=== PATIENT | male | born 1980 | race Caucasian/White ===

== ENCOUNTER 2023-02-06 10:05 | Day surgery (SDC) | payer MEDICAID, SELFPAY ==
--- NOTE | 2023-01-29 11:26 | EKG12_ITS ---
Test Reason : PRE OP Blood Pressure : / mmHG Vent. Rate : 068 BPM Atrial Rate : 068 BPM P-R Int : 122 ms QRS Dur : 088 ms QT Int : 396 ms P-R-T Axes : 060 062 007 degrees QTc Int : 421 ms Normal sinus rhythm Nonspecific T wave abnormality Abnormal ECG Confirmed by NATHALY BAKER ([id number]), tape editor WAYNE AGUDELO ([id number]) on 01/30/2023 11:37:03 AM Referred By: Bowen Larsen Confirmed By:NATHALY BAKER
[2023-01-29 12:32] LABS: Hematocrit 45.8 % (40-54); Hemoglobin 15.6 g/dL (13.0-16.5); Mean Corp Hgb Conc 34.1 g/dL (32-36); Mean Corpuscular Hgb 33.1 pg (27.0-32.0); Mean Platelet Vol. 11.2 fl (6.2-12.0); Platelet Count 281 K/mm3 (150-450); RBC Distribution Width SD 50.4 fl (35.1-43.9); Red Blood Count 4.72 M/mm3 (4.6-6.2); White Blood Count 9.1 K/mm3 (4.4-11.0)
[2023-01-29 13:04] LABS: ALB/GLOB Ratio 0.9 RATIO (0.9-2.4); AST(SGOT) 16 U/L (15-37); Alanine Aminotransfer ALT/SGPT 25 U/L (16-61); Albumin, Serum 3.3 g/dL (3.2-5.0); Alkaline Phosphatase 72 U/L (45-117); Anion Gap 5 (5-15); BUN 12 mg/dL (7-18); BUN/Creat Ratio 11.8 RATIO (10-20); Calcium,Total 9.1 mg/dL (8.5-10.1); Chloride 106 mmol/L (98-107); Creatinine, Serum 1.02 mg/dL (0.70-1.30); EST Glomerular Filtration Rate 85 mL/min (>60); Est Glom Filt Rate - Afr Amer 103 mL/min (>60); Globulin 3.5 g/dL (2.2-4.2); Glucose 83 mg/dL (74-106); Potassium 4.1 mmol/L (3.5-5.1); Protein, Total 6.8 g/dL (6.4-8.2); Sodium Level 137 mmol/L (136-145)
[2023-02-06 10:38] VITALS: BP 134/87; PULSE 68; RESP 16; TEMP 37; O2SAT 100; BMI 26.6
[2023-02-06] MEDS: Lactated Ringers 1,000 ML 15 ML IV (10:41)
--- NOTE | 2023-02-06 10:44 | PCM.HP.BLA ---
History and Physical Date of Admission: 02/06/23 Visit Reasons: PILONIDAL CYST- WANTS EXCISION Chief Complaint: pilonidal cyst-wants excision Is patient in pain?: No Allergies No Known Allergies Allergy (Unverified 01/14/23 13:54) Medications NK 01/14/23 [History Confirmed 01/14/23] PFSH Surgical History (Updated 01/14/23 @ 13:52 by Brenda Saldana) H/O removal of cyst Family History (Updated 01/14/23 @ 13:53 by Brenda Saldana) Grandfather Cancer lungGrandmother CVA (cerebral vascular accident)Uncle Cancer HPI HPI HPI: 42-year-old gentleman is referred by EARL Massey for surgical consultation regarding a pilonidal cyst. A written copy my surgical consult recommendations will return to her. 42-year-old gentleman. He states that he has had an area that intermittently drains around his sacrococcygeal area and has done so for years. 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 Etiology to that is not clear. He has been a long-term cigarette smoker and he continues to smoke. He has been diagnosed as having a pilonidal cyst and he is referred for consideration of removal. ROS General General: No weight change, appetite, fatigue, colon cancer, breast cancer or weakness HEENT HEENT: No difficulty swallowing, eye injury, eye surgery, swollen glands or hoarseness Endo Endocrine: No thyroid disease, diabetes mellitus, thyroid cancer, Hair loss, heat intolerance or cold intolerance Skin Skin: No rash or changing moles Musc Musculoskeletal: Yes back problems; No arthritis, rheumatoid arthritis, gout or joint pain Cardio Cardiovascular: No murmur, pacemaker, heart disease, atrial fibrillation, high blood pressure, heart attack, heart stent, palpitations, shortness of breat with exertion or chest pain Psych Psychiatric: No depression, anxiety or hearing voices Resp Respiratory: No shortness of breath, No sleep apnea, No cough, No COPD, No asthma, No emphysema and No wheezing Gastro Gastrointestinal: No abdominal pain, No nausea or vomiting, No diarrhea, No constipation, No blood in stool, No acid reflux, No hemorrhoids, No ulcers, No gallbladder problem and No black,tarry stools [place] Hematologic: No blood thinners, No blood disorders, No bleeding, No anemia and No blood clots Neuro Neurologic: No system reviewed and no additional complaints, except as documented, No as per HPI, No abnormal gait, No abnormal hearing, No abnormal movements, No abnormal speech, No behavioral changes, No burning sensations, No confusion, No convulsions, No disequilibrium, No dizziness, No localized weakness, No frequent falls, No headache(s), No lack of coordination, No loss of vision, No memory loss, Yes numbness, No other visual disturbances, No radicular pain, No restless legs, No sensory deficit, No syncope, Yes tingling, No tremor(s), No weakness and No other Exam Const General: cooperative and comfortable Nutritional Appearance: average body habitus Orientation: alert and awake Other: Intermittent jitteriness tremors noted HENMT Head: normal to inspection Other: Poor dentition Eyes General: appearance normal, both eyes and all related structures Neck Neck: normal visual inspection Chest Other: Increased AP diameter. Clear to auscultation Resp Auscultation: clear to auscultation bilaterally Cardio Rate: regular rate Rhythm: regular rhythm GI Palpation: soft and no hepatosplenomegaly Skin Other: Left parasacral area punctate area of previous drainage. Induration that extends to the midline. Deep espinoza cleft. No obvious pits or pores Neuro General: patient alert Extrem General: no calf tenderness Psych Appearance: grossly normal Assessment and Plan Assessment and Plan (1) Pilonidal cyst: Status: Acute Plan: Patient appears to have intermittently draining symptomatic pilonidal cyst. I have recommended to him a cleft lift procedure. In great detail we discussed technique benefits risk complications alternatives. No guarantees of success have been offered. I have vigorously encouraged the patient to cease his tobacco use and explained to him the complications that can occur with wound healing etc. with his continuing. I have instructed him on depilatory hair removal and have provided him the name of a product to assist and to initiate. Patient is aware that postoperative drainage will be placed and that he will not be showering or bathing for approximately 5 postoperative days while the drains are in place. 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 He has had an opportunity to ask and have questions answered. We will schedule procedure at his discretion. Bowen Larsen M.D., F.A.C.S I have examined the patient and the H&P has been reviewed. There are no clinical changes since date of exam. Bowen Larsen M.D., F.A.C.S.
--- NOTE | 2023-02-06 10:45 | EX.PCM.DISCH ---
Discharge Instructions Diet Discharge Diet: Light diet - advance as tolerated Activity Discharge Activity: May Not Drive and May Not Shower Weight Bearing Status: Weight bearing as tolerated Lifting Restrictions: 10 pounds Dressing / Incision Additional Dressing/Incision Instructions:: You may cleanse the incision area and drain site with a Q-tip and peroxide. Reapply dry gauze then daily. If the drain is in place then empty and measure and record the amount of drain output. Please have assistance in either clip bring the hair around the pilonidal site or using a hair removal product. Recurrent hair growth at the site is to be strictly inhibited Follow Up Care Please Follow Up With: Bowen Larsen MD When: Call for appointment to be seen on February 10, 2023 Test Results: Test results from this visit will be discussed in further detail at your follow-up appointment, if applicable. Discharge Plan Admission Primary Reason for Your Visit: Pilonidal cyst sinuses and abscess Attending Provider: Bowen Larsen Primary Care Provider: Mary Ann Barnes NP Discharge Orders/Prescriptions Prescriptions: New hydrocodone-acetaminophen 5-325 mg tablet 1 tab PO Q6H PRN (Reason: pain) 3 Days Qty: 10 0RF hydrocodone-acetaminophen 5-325 mg Tablet 1 - 2 tab PO Q4H PRN PRN (Reason: Pain Score 1-10) 3 Days Qty: 10 0RF Continued hydrocodone-acetaminophen 5-325 mg tablet 1 tab PO Q6H PRN (Reason: pain) MARIJUANA Patient Comments: PT STATES MEDICAL MARIJUANA; SMOKES IT COUPLE TIMES PER DAY Referrals / Follow Up: Mary Ann Barnes NP, [employer] [Primary Care Provider] - Disposition Disposition (needs filled in before D/C Order can be placed): Home, Self Care
[2023-02-06] MEDS: Cefazolin 2 GM in 0.9% Normal Saline 100 ML IV (12:57)
--- NOTE | 2023-02-06 13:00 | PILCYST_PTH ---
PATIENT: NAV COUGHLIN LOC: [facility] [place] U#:[id number] AGE/SX: 42/M ROOM: RE02/06/[address]: Dr. Bowen Larsen MD : [id number] BED: DIS: 02/06/2023 SPEC #: [id number] RECD: 02/06/23 14:29 STATUS: TINY STEPHANIE #: [id number] SILVERIO: 02/06/23 13:[address]: Bowen Larsen DEPT: SURGICAL PATHOLOGY RECD BY: Brit Marina ENTERED: 02/07/23 08:07 SP TYPE: Pilonidal OTHR DR: EARL Estrada Tissues: PILONIDAL TISSUE Procedures: Surgery Specimen Level III HEADER OPERATION: Excision, pilonidal cyst and cleft lift procedure PRE-OP DIAGNOSIS: Pilonidal cyst TISSUE SUBMITTED: Pilonidal cyst MICROSCOPIC DIAGNOSIS Pilonidal cyst, excision: Consistent with pilonidal cyst. SJ:richard 02/10/2023 MICROSCOPIC DESCRIPTION Slides are reviewed. GROSS DESCRIPTION Received in fixative is one container labeled with the patient's name and designated pilonidal cyst. The specimen consists of a piece of skin with underlying tissue measuring 9.5 x 2.0 cm and up to 2.0 cm in thickness. Sections reveal a focal area of congestion with blue dye discoloration. Chocolatier sections are submitted in three cassettes. / DEEDEE:richard 02/07/2023 TC:5 [facility]: [id number]
[2023-02-06] MEDS: Bupivacaine Mpf 0.5% 30 ML VIAL (14:06)
--- NOTE | 2023-02-06 14:12 | PCM.OPRPT ---
Report of Operation Date of Procedure: 02/06/23 Pre-Operative Diagnosis: Pilonidal cyst and sinuses Post-Operative Diagnosis: Same Surgery/Procedure Performed:: Complex pilonidal cystectomy with cleft lift procedure Description of Surgical Findings:: Timeout and informed consent was obtained. 42-year-old gentleman was taken to the operating room placed initially supine on the table underwent general endotracheal intubation anesthesia. Ancef 2 g were given intravenously. He was then placed prone on the table with careful shoulder rolls. A modified jackknife position was utilized. Tape was used to help expose the coccygeal sacral area. Betadine prepping was performed. A cleft lift procedure was designed to excise the sinus tract abscessed area as well as the pilonidal sinuses. The abscess site was to the left of midline. The curvilinear incision was based off of the midline to the left. Sharp scalpel incision was performed. Then a subcutaneous flap was raised on the right with electrocautery. Dissection was formed beneath the abscess cyst and sinuses. It is of note that I did inject methylene blue into the tracks to assure complete removal. The flap raised on the right was then approximated to the left. I made a stab incision more superiorly on the left and a 10 round PETERSON drain was exited. I used multiple interrupted 2-0 chromic's to approximate the deep subcutaneous tissues to help obliterate space. Then used multiple interrupted 3-0 Vicryl sutures to approximate the subcutaneous subdermal tissues. Skin edges were approximated with simple and mattress sutures of 3-0 nylon. The cindi-incisional area was anesthetized with 30 cc of 0.5% Marcaine. 4 x 4's ABDs paper tape and convent panties were applied. Sponge and instrument and needle counts were reported to the surgeon to be correct. Patient tolerated the procedure well. The specimen measured 9 x 3.5 cm. Specimen pilonidal abscess cyst and sinuses. Drains 10 round PETERSON x1. Blood loss minimal. The patient was taken to the recovery room in satisfactory addition without apparent complication Bowen Larsen M.D., F.A.C.S. Surgeon: Bowen Larsen Type of Anesthesia: General and Local Anesthesiologist: Tommy Cook
[2023-02-06 14:30] VITALS: BP 132/89; BP 134/87; PULSE 87; RESP 16; TEMP 36.9; O2SAT 100
[2023-02-06 14:45] VITALS: BP 130/98; BP 134/87; PULSE 68; RESP 16; O2SAT 98
[2023-02-06 15:00] VITALS: BP 134/87; BP 135/82; PULSE 72; RESP 16; TEMP 37.1; O2SAT 100
[2023-02-06 15:40] VITALS: BP 134/87
== END 2023-02-06 15:59 | disposition home or self-care (01) ==
LOC: SDC 10:07 → AC 10:08
PROVIDERS: PCP Nurse Practitioner Family; Referring Provider Surgery; Visit Provider Surgery
PROC: (CPT 11772; principal; 2023-02-06 12:45)
DX: L05.91 Pilonidal cyst without abscess (principal); F17.210 Nicotine dependence, cigarettes, uncomplicated; F12.90 Cannabis use, unspecified, uncomplicated
CPT/HCPCS: 11772; 00300; 36415; 80053; 85027; 88304; 93005; J7120; J2405; Q9968